=== PATIENT | female | born 1965 | race Caucasian/White ===

== ENCOUNTER 2018-12-14 06:25 | Day surgery (SDC) | payer OTHER ==
[~2018-12-14] VITALS: Ht 152.4 cm; Wt 92.1 kg
[2018-12-14] MEDS ORDERED: fentaNYL CITRATE/PF 100 MCG/2 ML AMP ONE (07:18)
[2018-12-14] MEDS ORDERED: SIMETHICONE 40 MG/0.6 ML ML ONE (07:19)
[2018-12-14] MEDS ORDERED: MIDAZOLAM HCL 5 MG/5 ML VIAL ONE (07:19)
[2018-12-14] MEDS: MIDAZOLAM HCL 5 MG/5 ML VIAL ONE ×3 (08:38→08:42)
[2018-12-14 10:19] VITALS: BP_SYST 128
== END 2018-12-14 09:35 | disposition home or self-care (01) ==
LOC: SMU 06:25 → SDS 06:25
PROVIDERS: ATTEND Surgery
DX: R13.10 Dysphagia, unspecified (principal); K29.70 Gastritis, unspecified, without bleeding; K44.9 Diaphragmatic hernia without obstruction or gangrene
CPT/HCPCS: 36415; 43239; 87081; 88305; 88312; 88313; 99152; J2250; J3010; J7030

== ENCOUNTER 2019-02-15 07:57 | Day surgery (SDC) | payer OTHER ==
[2019-02-15 08:15] VITALS: BP_SYST 138
[2019-02-15] MEDS ORDERED: MIDAZOLAM HCL 5 MG/5 ML VIAL ONE ×2 (08:22→08:23)
[2019-02-15] MEDS ORDERED: SIMETHICONE 40 MG/0.6 ML ML ONE (08:23)
[2019-02-15] MEDS ORDERED: fentaNYL CITRATE/PF 100 MCG/2 ML AMP ONE (08:23)
== END 2019-02-15 09:25 | disposition home or self-care (01) ==
LOC: SDS 07:57
PROVIDERS: ATTEND Surgery
DX: Z12.11 Encounter for screening for malignant neoplasm of colon (principal); K64.8 Other hemorrhoids; L91.8 Other hypertrophic disorders of the skin
CPT/HCPCS: 45378; 99152; G0378; J2250; J3010